=== PATIENT | male | born 1995 | race Caucasian/White ===

== ENCOUNTER 2017-11-12 20:58 | Emergency (ER) | payer OTHER ==
--- NOTE | 2017-11-12 21:31 | ED Physician Documentation ---
PD HPI SYNCOPE - Stated complaint Stated Complaint: FAINTING - Chief complaint Chief Complaint: Neuro - History obtained from History obtained from: Patient, Friend - History of Present Illness Timing - onset: Other (sometime between 6:30 PM and 8:30 PM (see narrative, below)) Duration: Unknown Preceding symptoms: None Associated symptoms: None, Unknown (unknown if seizure) Injury occurred: None Pain level max: 0 Pain level now: 0 Similar symptoms before: Has not had sx before Recently seen: Not recently seen - Additional information Additional information: patient was at home alone, recalls watching TV and then waking up on ground. arrives to ED asymptomatic. Patient's roommate last saw patient at 6:30 PM (and patient was acting normal at that time), then returned home 8:30 PM and found patient face-down on kitchen floor unconscious. He was able to wake patient, although patient was slow to wake and was initially disoriented and confused. Per roommate, it was approximately 10 minutes before patient had fully returned to baseline (AAOx3) mental status. Patient has no recollection of feeling anything abnormal prior to waking up on the floor. Review of Systems Constitutional: reports: Reviewed and negative Eyes: reports: Reviewed and negative Ears: reports: Reviewed and negative Cardiac: reports: Reviewed and negative Respiratory: reports: Reviewed and negative GI: reports: Reviewed and negative Musculoskeletal: reports: Reviewed and negative Neurologic: reports: Confused (resolved), LOC. denies: Headache, Head injury PD PAST MEDICAL HISTORY - Past Medical History Past Medical History: Yes Cardiovascular: None Respiratory: Asthma Neuro: None Endocrine/Autoimmune: None GI: GERD : None HEENT: None Psych: Depression, Anxiety, ADD/ADHD Musculoskeletal: None Derm: None - Past Surgical History Past Surgical History: Yes Ortho: Other - Present Medications Home Medications: Ambulatory Orders Medication Instructions Recorded Confirmed Home Medications Unobtainable 11/12/17 11/12/17 [HOME MEDICATIONS UNOBTAINABLE] - Allergies Allergies/Adverse Reactions: Allergies Allergy/AdvReac Type Severity Reaction Status Date / Time No Known Drug Allergies Allergy Verified 11/12/17 21:13 - Social History Does the pt smoke?: No Smoking Status: Never smoker Does the pt drink ETOH?: No Does the pt have substance abuse?: No - Immunizations Immunizations are current?: Yes - POLST Patient has POLST: No PD ED PE NORMAL - Vitals Vital signs reviewed: Yes - General General: Alert and oriented X 3, No acute distress, Well developed/nourished - HEENT HEENT: Atraumatic, PERRL, EOMI, Moist mucous membranes, Pharynx benign (no tongue bite/echymosis) - Neck Neck: No bony TTP - Cardiac Cardiac: RRR, No murmur, No gallop, No rub - Respiratory Respiratory: No respiratory distress, Clear bilaterally - Abdomen Abdomen: Soft, Non tender - Neuro Neuro: Alert and oriented X 3, 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, No motor deficit, No sensory deficit, Normal speech Eye Opening: Spontaneous Motor: Obeys Commands Verbal: Oriented GCS Score: 15 Results - Vitals Vitals: Vital Signs - 24 hr 11/12/17 11/12/17 21:09 23:14 Temperature 36.1 C L 36.8 C Heart Rate 70 65 Respiratory 18 18 Rate Blood Pressure 117/73 106/61 O2 Saturation 99 97 Oxygen O2 Source Room air - EKG (time done) No standard instances Rate: Rate (enter#) (57) Rhythm: NSR [place]: Normal Intervals: Normal [place] QRS: Normal Ischemia: Normal ST segments - Labs Labs: Laboratory Tests 11/12/17 11/12/17 11/12/17 21:34 22:02 22:02 WBC 12.8 H RBC 5.02 Hgb 15.4 Hct 45.9 MCV 91.4 MCH 30.8 MCHC 33.7 RDW 12.5 Plt Count 284 MPV 8.0 Neut # (Auto) 8.1 H Lymph # (Auto) 3.3 [place] # (Auto) 1.1 H Eos # (Auto) 0.2 Baso # (Auto) 0.0 Absolute Nucleated RBC 0.00 Nucleated RBC % 0.0 Sodium 138 Potassium 3.4 L Chloride 102 Carbon Dioxide 24 Anion Gap 12.0 BUN 9 Creatinine 1.0 Estimated GFR (MDRD) 93 Glucose 90 POC Whole Bld Glucose 96 Calcium 9.4 PD MEDICAL DECISION MAKING - ED course Complexity details: reviewed results, re-evaluated patient, considered differential, d/w patient ED course: remained asymptomatic during ED stay Departure - Departure Disposition: 01 Home, Self Care Clinical Impression: Syncope Qualifiers: Syncope type: unspecified Qualified Code(s): R55 - Syncope and collapse Condition: Good Instructions: ED Fainting Unkn Cause Follow-Up: CARLOS BARAKAT DO [Primary Care Provider] - Within 1 week Comments: I would recommend you refrain from both driving as well as working in any dangerous situations (such as with ordinance or heavy lifting in general) until you are cleared by your doctor to do so. Discharge Date/Time: 11/12/17 23:15
[2017-11-12 22:16] LABS: BASOPHILS % (AUTO) 0.4 %; EOSINOPHILS # (AUTO) 0.2 10^3/uL (0.0-0.7); EOSINOPHILS % (AUTO) 1.8 %; HGB - HEMOGLOBIN 15.4 g/dL (14.0-18.0); LYMPHOCYTES # (AUTO) 3.3 10^3/uL (1.5-3.5); LYMPHOCYTES % (AUTO) 26.1 %; MEAN CORPUSCULAR HEMOGLOBIN 30.8 pg (27.0-31.0); MEAN CORPUSCULAR HGB CONC 33.7 g/dL (32.0-36.0); MEAN CORPUSCULAR VOLUME 91.4 fL (80.0-94.0); MONOCYTES # (AUTO) 1.1 10^3/uL (0.0-1.0); MONOCYTES % (AUTO) 8.5 %; NEUTROPHILS # (AUTO) 8.1 10^3/uL (1.5-6.6); NEUTROPHILS % (AUTO) 63.2 %; PLT - PLATELET COUNT 284 10^3/uL (130-450); RED BLOOD COUNT 5.02 10^6/uL (4.70-6.10); RED CELL DISTRIBUTION WIDTH 12.5 % (12.0-15.0); WHITE BLOOD COUNT 12.8 x10^3/uL (4.8-10.8)
[2017-11-12 22:23] LABS: CALCIUM 9.4 mg/dL (8.5-10.3)
--- NOTE | 2017-11-12 22:37 | CT Preliminary Report ---
Exam: CT HEAD W/O IMPRESSION: Normal head CT. [facility] SITE ID: [id number]
--- NOTE | 2017-11-12 22:40 | CT Report ---
EXAM: CT HEAD EXAM DATE: 11/12/2017 10:19 PM. CLINICAL HISTORY: Syncope and amnesia. COMPARISON: None. TECHNIQUE: Multiaxial CT images were obtained from the foramen magnum to the vertex. Reformats: Coron al. IV contrast: None. In accordance with CT protocol optimization, one or more of the following dose reduction techniques w ere utilized for this exam: automated exposure control, adjustment of mA and/or KV based on patient s ize, or use of iterative reconstructive technique. FINDINGS: Parenchyma: No intraparenchymal hemorrhage. No evidence of mass, midline shift, or CT findings of inf arction. Jon-white differentiation is distinct. Extraaxial Spaces: Normal for age. No subdural or epidural collections identified. Ventricles: Normal in size and position. Sinuses and Orbits: Imaged paranasal sinuses, orbits, and mastoids show no significant abnormality. Bones: No evidence of fracture or calvarial defect. IMPRESSION: Normal head CT. [facility] Referring Provider Line: [phone] SITE ID: [id number]
[2017-11-12 23:16] VITALS: BP 106/61
== END 2017-11-12 23:15 | disposition home or self-care (01) ==
LOC: ED 20:58
DX: R55 Syncope and collapse (principal)
CPT/HCPCS: 36415; 70450; 80048; 85025; 93005; 99283; 99284